=== PATIENT | female | born 1975 | race Caucasian/White ===

== ENCOUNTER 2017-12-01 05:43 | Day surgery (SDC) | payer BC ==
[~2017-12-01] VITALS: Ht 162.6 cm; Wt 61.7 kg
[~2017-12-01 05:43] MED LIST: PRENATAL TABLE1 EAC3 PO; PROZAC40 MG PO; SYNTHROID100 MCG PO; TYLENOL EXTRA500 MG PO; XANAX1 MG PO
[2017-12-01 06:18] VITALS: BP 88/51
[2017-12-01 06:24] LABS: BASOPHIL (%) 0.9 % (0-1); BASOPHIL COUNT 0.1 K/uL (0-0.1); EOSINOPHIL (%) 2.6 % (0-5); EOSINOPHIL COUNT 0.2 K/uL (0-0.3); HEMATOCRIT 37.2 % (36.0-46.0); IMMATURE GRANULOCYTE (%) 0.7 % (0.0-0.7); LYMPHOCYTE (%) 31.4 % (15-42); LYMPHOCYTE COUNT 2.2 K/uL (1.0-2.8); MCH 31.9 PG (29.0-34.0); MCHC 34.9 G/DL (30.0-36.0); MCV 91.4 FL (83-99); MONOCYTE COUNT 0.6 K/uL (0-0.8); NEUTROPHIL (%) 55.4 % (45-76); NEUTROPHIL COUNT 3.9 K/uL (1.8-6.4); PLATELET COUNT 223 K/uL (156-360); RBC DIS.WIDTH-CV 12.3 % (11.8-14.6); RED BLOOD COUNT 4.07 M/uL (3.80-5.20)
[2017-12-01] MEDS ORDERED: IBUPROFEN800 MG PO (08:31)
[2017-12-01 09:45] VITALS: BP 135/86
[2017-12-01 10:05] VITALS: BP 93/55
[2017-12-01 10:45] VITALS: BP 87/49
[2017-12-01 11:05] VITALS: BP 90/49
== END 2017-12-01 11:20 | disposition home or self-care (01) ==
LOC: SDC 05:43
PROVIDERS: Obstetrics & Gynecology Obstetrics
PROC: 10D17ZZ Extraction of Products of Conception, Retained, Via Natural or Artificial Opening (ICD-10-PCS; principal; 2017-12-01)
DX: O02.1 Missed abortion (principal); Z3A.10 10 weeks gestation of pregnancy; E03.9 Hypothyroidism, unspecified; F17.210 Nicotine dependence, cigarettes, uncomplicated
CPT/HCPCS: 85025; 86850; 86900; 86901; 88305; J1100; J1170; J1885; J2250; J2405; J3010